=== PATIENT | female | born 1940 | race Caucasian/White ===

== ENCOUNTER 2024-03-29 15:58 | Inpatient (IN) | payer BC, OTHER ==
[~2024-03-29] VITALS: Ht 167.6 cm; Wt 69.4 kg
[2024-03-29 16:48] LABS: BASOPHILS # (AUTO) 0.1 K/UL (0.0-0.2); EOSINOPHILS # (AUTO) 0.1 K/uL (0.0-0.7); EOSINOPHILS % (AUTO) 1.1 % (0.0-7.0); HEMATOCRIT 48.1 % (31.2-41.9); HEMOGLOBIN 15.5 g/dL (10.9-14.3); LYMPHOCYTES # (AUTO) 1.2 K/uL (0.8-4.8); LYMPHOCYTES % (AUTO) 13.2 % (20.5-51.5); MEAN CORPUSCULAR HEMOGLOBIN 28.1 uug (24.7-32.8); MEAN CORPUSCULAR HGB CONC 32 g/dL (32.3-35.6); MEAN CORPUSCULAR VOLUME 87.4 fL (75.5-95.3); MONOCYTES # (AUTO) 0.8 K/uL (0.1-1.30); MONOCYTES % (AUTO) 8.5 % (0.0-11.0); NEUTROPHILS % (AUTO) 76.2 % (38.5-71.5); PLATELET COUNT (AUTO) 347 K/uL (179-408); RED BLOOD CELL COUNT(AUTO) 5.51 MIL/uL (3.63-4.92); RED CELL DISTRIBUTION WIDTH 17.1 % (12.3-17.7); WHITE BLOOD COUNT (AUTO) 9.2 K/uL (3.8-11.8)
[2024-03-29 16:49] LABS: DIFFERENTIAL COMMENT 1
[2024-03-29 16:55] LABS: ETHANOL < 3 MG/DL (0-10)
[2024-03-29 17:02] LABS: CARBON DIOXIDE 22 mmol/L (21-32); CHLORIDE 110 mmol/L (98-107); CREATININE 1.6 mg/dL (0.6-1.3); GLUCOSE 169 mg/dL (74-106); POTASSIUM 4.3 mmol/L (3.5-5.1); SODIUM SERUM 148 mmol/L (136-145); UREA NITROGEN, BLOOD 40 mg/dL (7-18)
[2024-03-29 17:06] LABS: ALANINE AMINOTRANSFERASE 18 U/L (14-59); ALBUMIN 4.3 g/dL (3.4-5.0); ALKALINE PHOSPHATASE 96 U/L (50-136); ASPARTATE AMINOTRANSFERASE 10 U/L (15-37); BILIRUBIN,DIRECT 0.2 mg/dL (0.0-0.2); BILIRUBIN,TOTAL 0.7 mg/dL (0.2-1.0); TOTAL PROTEIN, SERUM 8.2 g/dL (6.4-8.2)
[2024-03-29 17:07] LABS: *BILIRUBIN,URIN 2+ (NEGATIVE); *BLOOD, URINE NEGATIVE (NEGATIVE); *CLARITY,URINE CLEAR (CLEAR); *COLOR,URINE DARK YELLOW (YELLOW); *KETONES,URINE NEGATIVE (NEGATIVE); *PROTEIN,URINE 1+ (NEGATIVE); *UROBILINOGEN,URINE 0.2 E.U./dl (NORMAL); LEUKOCYTE ESTERASE ,URINE NEGATIVE (NEGATIVE); NITRITE, URINE NEGATIVE (NEGATIVE); UGLUCOSE NEGATIVE (NEGATIVE)
[2024-03-29 17:08] LABS: ACETAMINOPHEN < 2.0 ug/mL (10-30)
[2024-03-29 17:21] LABS: *AMPHETAMINE, URINE NEGATIVE (NEGATIVE); *BARBITURATE, URINE NEGATIVE (NEGATIVE); *BENZODIAZEPINE, URINE NEGATIVE (NEGATIVE); *CANNABINOID, URINE NEGATIVE (NEGATIVE); *COCCAINE, URINE NEGATIVE (NEGATIVE); *OPIATE, URINE NEGATIVE (NEGATIVE); *PHENCYCLIDINE SCREEN,URINE NEGATIVE (NEGATIVE); FENTANYL, URINE NEGATIVE (NEGATIVE)
[2024-03-29 17:29] LABS: BACTERIA,URINE NONE SEEN /HPF (NONE SEEN); RBC,URINE NONE SEEN /HPF (0-3); SQUAMOUS EPITHELIAL CELL,UR FEW /HPF (NONE SEEN); WBC,URINE 0-3 /HPF (0-3)
[2024-03-29] MEDS ORDERED: [UNRECOGNIZED DRUG - CODE] PO (22:53)
[2024-03-29] MEDS ORDERED: PARO25TA17 PO (22:53)
[2024-03-29] MEDS ORDERED: CYAN-51 PO (22:53)
[2024-03-29] MEDS ORDERED: DEXL60CA3 PO (22:53)
[2024-03-29] MEDS ORDERED: CARI1.5C PO (22:53)
[2024-03-29] MEDS ORDERED: LAMO150T6 PO (22:53)
[2024-03-29] MEDS ORDERED: PREG50CA PO (22:53)
[2024-03-29] MEDS ORDERED: SIMV-49 PO (22:53)
[2024-03-29] MEDS ORDERED: ATOM60CA PO (22:53)
[2024-03-30] MEDS ORDERED: ZOLPIDEM 5 MG TABLET PO PRN
[2024-03-30] MEDS ORDERED: LORAZEPAM 1 MG TABLET PO PRN
[2024-03-30] MEDS ORDERED: MAG HYDROX/AL HYDROX/SIMETH 30 ML LIQUID UDC PO PRN
[2024-03-30] MEDS ORDERED: MAGNESIUM HYDROXIDE 30 ML LIQUID UDC PO PRN
[2024-03-30] MEDS ORDERED: ACETAMINOPHEN 325 MG TABLET PO PRN
[2024-03-30 06:04] VITALS: BP 134/65; O2SAT 92
[2024-03-30 08:00] VITALS: BP 133/66; TEMP 98.2; O2SAT 96
[2024-03-30] MEDS: OLANZAPINE ZYDIS 5 MG TAB.RAPDIS PO SCH (08:38)
[2024-03-30] MEDS: LAMOTRIGINE 25 MG TABLET PO SCH (08:38)
[2024-03-30] MEDS ORDERED: POLY17PO4 PO (14:10)
[2024-03-30] MEDS ORDERED: ACET-73 PO (14:14)
[2024-03-30] MEDS ORDERED: MIRALAX 17 GM POWD.PACK PO PRN (16:15)
[2024-03-30] MEDS ORDERED: Medication Not On Formulary EA (Lamotrigine 150 MG) PO SCH (17:00)
[2024-03-30 17:37] VITALS: BP 119/68; TEMP 98.6; O2SAT 96
[2024-03-30] MEDS: SIMVASTATIN 40 MG TABLET PO SCH (22:00)
[2024-03-31 07:28] LABS: THYROID STIMULATING HORMONE 0.199 mIU/mL (0.358-3.740)
[2024-03-31 08:00] VITALS: BP 123/58; TEMP 97.8; O2SAT 96
[2024-03-31] MEDS: PREGABALIN 50 MG CAPSULE PO SCH (08:39)
[2024-03-31 09:58] LABS: HIV-1 p24 ANTIGEN NON REACTIVE (NONREACTIVE); HIV-1/2 ANTIBODY NON REACTIVE (NONREACTIVE)
[2024-03-31 16:19] VITALS: BP 123/71; TEMP 98; O2SAT 100
[2024-03-31 20:00] VITALS: BP 117/60; TEMP 98; O2SAT 93
[2024-04-01 08:49] VITALS: BP 104/56; TEMP 97.8; O2SAT 97
[2024-04-01 13:18] LABS: BASOPHILS % (AUTO) 0.3 % (0.0-2.0); DIFFERENTIAL COMMENT 0; EOSINOPHILS # (AUTO) 0.1 K/uL (0.0-0.7); EOSINOPHILS % (AUTO) 1.2 % (0.0-7.0); HEMATOCRIT 45.6 % (31.2-41.9); HEMOGLOBIN 14.8 g/dL (10.9-14.3); LYMPHOCYTES # (AUTO) 1.9 K/uL (0.8-4.8); LYMPHOCYTES % (AUTO) 17.4 % (20.5-51.5); MEAN CORPUSCULAR HEMOGLOBIN 28.3 uug (24.7-32.8); MEAN CORPUSCULAR HGB CONC 33 g/dL (32.3-35.6); MEAN CORPUSCULAR VOLUME 87.2 fL (75.5-95.3); MONOCYTES # (AUTO) 1.2 K/uL (0.1-1.30); MONOCYTES % (AUTO) 10.6 % (0.0-11.0); NEUTROPHILS # (AUTO) 7.9 K/uL (1.8-8.9); NEUTROPHILS % (AUTO) 70.5 % (38.5-71.5); PLATELET COUNT (AUTO) 216 K/uL (179-408); RED BLOOD CELL COUNT(AUTO) 5.23 MIL/uL (3.63-4.92); WHITE BLOOD COUNT (AUTO) 11.2 K/uL (3.8-11.8)
[2024-04-01 13:42] LABS: CALCIUM 9.8 mg/dL (8.5-10.1); CARBON DIOXIDE 20 mmol/L (21-32); CHLORIDE 108 mmol/L (98-107); GLUCOSE 96 mg/dL (74-106); SODIUM SERUM 144 mmol/L (136-145); UREA NITROGEN, BLOOD 26 mg/dL (7-18)
[2024-04-01 13:43] LABS: MAGNESIUM 2.2 mg/dL (1.8-2.4); PHOSPHOROUS 3.4 mg/dL (2.5-4.9); THYROID STIMULATING HORMONE 0.387 mIU/mL (0.358-3.740)
[2024-04-01 15:57] LABS: *COLOR,URINE YELLOW (YELLOW)
[2024-04-01 15:58] LABS: *BILIRUBIN,URIN 1+ (NEGATIVE); *BLOOD, URINE NEGATIVE (NEGATIVE); *CLARITY,URINE CLOUDY (CLEAR); *KETONES,URINE NEGATIVE (NEGATIVE); *PROTEIN,URINE NEGATIVE (NEGATIVE); LEUKOCYTE ESTERASE ,URINE NEGATIVE (NEGATIVE); NITRITE, URINE NEGATIVE (NEGATIVE); UGLUCOSE NEGATIVE (NEGATIVE)
[2024-04-01 16:02] VITALS: BP 116/65; TEMP 97.9; O2SAT 98
[2024-04-01 16:21] LABS: BACTERIA,URINE FEW /HPF (NONE SEEN); RBC,URINE NONE SEEN /HPF (0-3); SQUAMOUS EPITHELIAL CELL,UR FEW /HPF (NONE SEEN); URINE AMORPHOUS URATE MANY /HPF; WBC,URINE 0-3 /HPF (0-3)
[2024-04-01 20:00] VITALS: BP 122/60; TEMP 97.6; O2SAT 92
[2024-04-02 08:56] VITALS: BP 121/55; TEMP 98; O2SAT 97
[2024-04-02 16:17] VITALS: BP 122/50; TEMP 99.4; O2SAT 97
[2024-04-02 20:20] VITALS: BP 126/58; TEMP 98.4; O2SAT 94
[2024-04-03 08:19] VITALS: BP 114/68; TEMP 98.8; O2SAT 98
[2024-04-03 16:13] VITALS: BP 122/53; TEMP 98.6; O2SAT 97
[2024-04-03 20:20] VITALS: BP 111/58; TEMP 98; O2SAT 98
[2024-04-03] MEDS: SIMVASTATIN 10 MG TABLET PO SCH (21:00)
[2024-04-04 08:09] VITALS: BP 104/64; TEMP 98; O2SAT 91
[2024-04-04 15:38] VITALS: BP 114/56; TEMP 98; O2SAT 98
[2024-04-04 20:00] VITALS: BP 106/54; TEMP 97.9; O2SAT 96
[2024-04-05 08:00] VITALS: BP 131/63; TEMP 98.1; O2SAT 95
[2024-04-05] MEDS ORDERED: PREG50CA PO (11:34)
[2024-04-05] MEDS ORDERED: SIMV10TA98 PO (11:34)
[2024-04-05] MEDS ORDERED: DEXL60CA3 PO (11:34)
== END 2024-04-05 12:25 | DRG 885 ==
LOC: ER 15:58 → GPSOV3 22:44 → GPS 03-31 09:30 → GPSOV3 04-05 00:20
PROVIDERS: ADMIT Psychiatry & Neurology Psychiatry; ATTEND Internal Medicine
DX: F31.2 Bipolar disorder, current episode manic severe with psychotic features (principal); N17.0 Acute kidney failure with tubular necrosis; E87.0 Hyperosmolality and hypernatremia; D68.59 Other primary thrombophilia; E86.0 Dehydration; Z91.148 Patient's other noncompliance with medication regimen for other reason; F03.90 Unspecified dementia, unspecified severity, without behavioral disturbance, psychotic disturbance, mood disturbance, and anxiety; Z74.09 Other reduced mobility; E78.5 Hyperlipidemia, unspecified; Z85.3 Personal history of malignant neoplasm of breast; Z90.11 Acquired absence of right breast and nipple; J30.9 Allergic rhinitis, unspecified; Z66 Do not resuscitate; E05.90 Thyrotoxicosis, unspecified without thyrotoxic crisis or storm; R73.03 Prediabetes; Z90.49 Acquired absence of other specified parts of digestive tract; Z96.651 Presence of right artificial knee joint; M81.0 Age-related osteoporosis without current pathological fracture; K59.09 Other constipation; I51.7 Cardiomegaly; K21.9 Gastro-esophageal reflux disease without esophagitis; G89.29 Other chronic pain
CPT/HCPCS: 36415; 70450; 83735; 84100; 84443; 85025; 86592; 87806; 93005; A4606; A4663; G0480